=== PATIENT | male | born 1990 | race Hispanic/Latino ===

== ENCOUNTER 2017-10-08 11:18 | Emergency (ER) | payer BC ==
[~2017-10-08] VITALS: Ht 177.8 cm; Wt 129.9 kg
[2017-10-08] MEDS ORDERED: KEFLEX500 MG PO (13:24)
[2017-10-08] MEDS ORDERED: PERCOCET 5/31 TABLET PO (13:24)
[2017-10-08 13:42] VITALS: BP 144/92
== END 2017-10-08 13:48 | disposition home or self-care (01) ==
LOC: EME 11:18 → RME 11:18
DX: S62.636B Displaced fracture of distal phalanx of right little finger, initial encounter for open fracture (principal); W23.0XXA Caught, crushed, jammed, or pinched between moving objects, initial encounter; Y99.0 Civilian activity done for income or pay
CPT/HCPCS: 73140; 99281; 99285